=== PATIENT | female | born 1965 | race Caucasian/White ===

== ENCOUNTER 2019-06-03 17:43 | Emergency (ER) | payer OTHER, BC ==
[~2019-06-03] VITALS: Ht 170.2 cm; Wt 72.6 kg
[2019-06-03] MEDS ORDERED: SODIUM CHLORIDE 0.9% 1000ML 1,000 ML IV STA (19:27)
[2019-06-03 19:29] LABS: BASOPHILS % 0.8 % (0.0-1.0); EOSINOPHILS # (AUTO) 0.1 (0.0-0.4); EOSINOPHILS % 1.1 % (0.0-6.0); HEMATOCRIT 45.4 % (34.2-44.1); HEMOGLOBIN 15.6 g/dL (12.0-16.0); LYMPHOCYTES # (AUTO) 1.5 (1.0-3.2); LYMPHOCYTES % 27.8 % (18.0-39.1); MEAN CORPUSCULAR HEMOGLOBIN 31.6 pg (28-32); MEAN CORPUSCULAR HGB CONC 34.4 g/dL (31-35); MEAN CORPUSCULAR VOLUME 92.1 fL (81-99); MONOCYTES # (AUTO) 0.6 (0.2-0.8); MONOCYTES % 10.9 % (4.4-11.3); NEUTROPHILS # (AUTO) 3.2 (2.1-6.9); PLATELET COUNT 163 x10e3/uL (140-360); RED BLOOD COUNT 4.93 x10e6/uL (3.6-5.1); RED CELL DISTRIBUTION WIDTH 12.7 % (11.7-14.4)
[2019-06-03] MEDS ORDERED: MECLIZINE HCL 12.5 MG TAB PO ONE (19:30)
[2019-06-03 19:43] LABS: ALANINE AMINOTRANSFERASE 10 IU/L (0-55); ALBUMIN 4.2 g/dL (3.5-5.0); ALBUMIN/GLOBULIN RATIO 1.2 (0.8-2.0); ALKALINE PHOSPHATASE 72 IU/L (40-150); ANION GAP 14.8 mmol/L (8-16); BLOOD UREA NITROGEN 11 mg/dL (7-26); BUN/CREATININE RATIO 16 (6-25); CARBON DIOXIDE 28 mmol/L (22-29); CHLORIDE 97 mmol/L (98-107); EST GLOMERULAR FILTRATION RATE > 60 ML/MIN (60-); GLUCOSE 109 mg/dL (74-118); POTASSIUM 3.8 mmol/L (3.5-5.1); SODIUM 136 mmol/L (136-145)
--- NOTE | 2019-06-03 19:53 | Diagnostic Imaging Report ---
EXAMINATION: Head CT without contrast. HISTORY:Headache, dizziness. COMPARISON:None. TECHNIQUE: Multidetector axial images were obtained from the foramen magnum to the vertex without contrast. The images were reconstructed using brain and bone algorithms. Thin section brain images were reformatted into coronal and sagittal planes. Dose modulation, iterative reconstruction, and/or weight based adjustment of the mA/kV was utilized to reduce the radiation dose to as low as reasonably achievable. Intravenous contrast: None IMAGE QUALITY: Acceptable. FINDINGS: Skull/scalp: No lytic or blastic. lesions. No surgical changes. Parenchyma: No abnormal density. No acute hemorrhage, mass or acute major vascular territorial infarct. Arteries: No density suggestive of thrombosis. Dural sinuses: No abnormal density suggestive of thrombosis. Ventricles: No hydrocephalus or displacement. Extra-axial spaces: No abnormal density. Brain volume: Mild bilateral frontal cerebral volume loss. Craniocervical junction: No mass, Chiari malformation, or basilar invagination. Sella: No mass. Paranasal/mastoid sinuses: Imaged portions unremarkable. IMPRESSION: No acute intracranial abnormality. Mild bifrontal cerebral volume loss. Signed by: Dr. Camilla Pete M.D. on 06/03/2019 7:50 PM
--- NOTE | 2019-06-03 19:58 | Diagnostic Imaging Report ---
History: Headache, dizziness and neck pain. Comparison studies: None Technique: Axial images were obtained through the cervical region.. Coronal and sagittal images reconstructed from the axial data. Dose modulation, iterative reconstruction, and/or weight based adjustment of the mA/kV was utilized to reduce the radiation dose to as low as reasonably achievable. Intravenous contrast: None Findings: Fractures: None. Soft tissue injuries: None. Atlantoaxial articulation: Intact. Alignment: Reversal of normal cervical lordosis is either positional or due to muscle spasm. No scoliosis. Cervicomedullary junction: No abnormalities. The foramen magnum is patent. Soft tissues: Punctate dystrophic calcification in left lobe of thyroid gland. Atherosclerotic calcification in right carotid bulb. Vertebrae: No fractures, infection or neoplasm. Degenerative changes: C3-C4: Mild right foraminal stenosis due to facet and uncovertebral arthrosis. C6-C7: Mild degenerative disc disease with decreased intervertebral disc space and endplate sclerosis. Posterior disc osteophyte complex results in mild canal stenosis. Moderate left foraminal stenosis due to facet and uncovertebral arthrosis. IMPRESSION: 1. No acute cervical spine fracture or dislocation. Reversal of normal cervical lordosis is either positional or due to muscle spasm. 2. Ligament, spinal cord and or vascular abnormalities cannot be excluded on the basis of this examination. 3. Cervical spondylosis as detailed above. Signed by: Dr. Camilla Pete M.D. on 06/03/2019 7:55 PM
[2019-06-03] MEDS ORDERED: CYCLOBENZAPRINE HCL 10 MG TAB PO NR (20:30)
[2019-06-03] MEDS: DIAZEPAM 5 MG TAB PO NR ×2 (22:02→22:54)
--- NOTE | 2019-06-03 22:42 | NUR ---
PATIENT VERBALIZES FEELING BETTER AFTER VALIUM WAS GIVEN
[2019-06-03 23:10] VITALS: BP 164/98
== END 2019-06-03 23:15 | disposition home or self-care (01) ==
LOC: ER 17:43
DX: R51 Headache (principal); H81.43 Vertigo of central origin, bilateral; M62.838 Other muscle spasm
CPT/HCPCS: 36415; 70450; 72125; 80053; 85025; 99284; J7030; J8597

== ENCOUNTER 2019-07-03 15:00 | Outpatient (RCR) | payer OTHER, BC | END 2019-07-07 | LOC: PT 15:00 | PROVIDERS: ATTEND Psychiatry & Neurology Clinical Neurophysiology | DX: M47.22 Other spondylosis with radiculopathy, cervical region (principal); M62.81 Muscle weakness (generalized); M53.82 Other specified dorsopathies, cervical region ==